=== PATIENT | female | born 1975 | race Caucasian/White ===

== ENCOUNTER → 2020-10-10 | Outpatient (CLI) | payer OTHER ==
[~2020-10-10] MED LIST: APIDRA SOL100 UNIT/1 SQ; BUSPAR 10MG10 MG PO; CARAFATE1 GM PO; CARDIZEM CD120 MG PO; CYMBALTA60 MG PO; ELIQUIS5 MG PO; GLUCOPHAGE1000 MG PO; LANTUS100 UNIT/1 SQ; LASIX20 MG PO; LIPITOR TAB 2020 MG PO; OMEPRAZOLE40 MG PO; PAMELOR25 MG PO; PRINIVIL20 MG PO; PROVENTIL HFA6.7 GM INH; REQUIP2 MG PO; SYMBICORT 160-1 INHA INH; SYNTHROID175 MCG PO
== END ==
LOC: KOH-I 08:00
DX: M50.10 Cervical disc disorder with radiculopathy, unspecified cervical region (principal); Z53.9 Procedure and treatment not carried out, unspecified reason

== ENCOUNTER 2021-10-19 15:03 | Inpatient (IN) | payer OTHER ==
[~2021-10-19] VITALS: Ht 175.3 cm; Wt 108.9 kg
[~2021-10-19 15:03] MED LIST changes: -GLUCOPHAGE1000 MG PO; -LANTUS100 UNIT/1 SQ; -LIPITOR TAB 2020 MG PO; -PRINIVIL20 MG PO
[2021-10-19] MEDS ORDERED: LISINOPRIL20 MG PO (15:33)
[2021-10-19] MEDS ORDERED: GLUCOPHAGE 500500 MG PO (15:36)
[2021-10-19] MEDS ORDERED: LIPITOR TAB 2020 MG PO (15:38)
[2021-10-19 15:47] LABS: HEMOGLOBIN 11.6 gm/dl (12.3-15.3); RED BLOOD COUNT 4.03 M/UL (4.00-5.10); WHITE BLOOD COUNT 6.8 K/UL (4.5-11.0)
[2021-10-19] MEDS ORDERED: LANTUS100 UNIT/1 SQ (16:04)
[2021-10-19 16:08] LABS: BUN/CREATININE RATIO 15 (0-10)
[2021-10-19] MEDS ORDERED: LEVOTHYROXINE200 MC1 PO (19:18)
[2021-10-19] MEDS ORDERED: TRAZODONE HCL50 MG PO (19:20)
[2021-10-19] MEDS ORDERED: GABAPENTIN400 MG PO (19:21)
[2021-10-19] MEDS ORDERED: POTASSIUM CHLO20 ME1 PO (19:21)
[2021-10-19] MEDS ORDERED: PRADAXA 150 MG150 MG PO (19:21)
[2021-10-19] MEDS ORDERED: RYBELSUS3 MG PO (19:22)
[2021-10-19] MEDS ORDERED: NURTEC ODT75 MG PO (19:22)
[2021-10-19] MEDS ORDERED: TOPIRAMATE50 MG PO (19:23)
[2021-10-19] MEDS ORDERED: LEXAPRO10 MG PO (19:23)
[2021-10-19] MEDS ORDERED: METOPROLOL SUCC50 MG PO (19:23)
[2021-10-19] MEDS ORDERED: PREMARIN VAG CR30 GM VG (19:26)
[2021-10-19] MEDS ORDERED: HUMALOG100 UNIT/3 INJ (19:27)
[2021-10-20 06:46] LABS: HEMOGLOBIN 10.8 gm/dl (12.3-15.3); RED BLOOD COUNT 3.76 M/UL (4.00-5.10); WHITE BLOOD COUNT 6.4 K/UL (4.5-11.0)
[2021-10-20 07:18] LABS: BUN/CREATININE RATIO 13 (0-10)
[2021-10-21 05:41] LABS: HEMOGLOBIN 11.2 gm/dl (12.3-15.3); RED BLOOD COUNT 3.94 M/UL (4.00-5.10); WHITE BLOOD COUNT 5.9 K/UL (4.5-11.0)
[2021-10-21 06:02] LABS: BUN/CREATININE RATIO 14 (0-10)
--- NOTE | 2021-10-21 17:27 | NUR ---
1620 PATIENT C/O CHEST PAIN. C/O STABBING PAIN THAT INTENSIFIES WITH BREATHING. NOTIFIED. ORDER RECEIVED FOR DILAUDID 0.5MG IVP NOW AND NS @75CC/HR. DILAUDID ADMINISTERED. IV FLUIDS STARTED. AT 1715 TELE NOTIFIED NURSE THAT PATIENT HAD 3 BEATS OF NSVT. PATIENT C/O HEART FLUTTERS. NOTIFIED. ORDER RECEIVED FOR METOPROLOL 12.5MG PO NOW.
[2021-10-22 06:56] LABS: HEMOGLOBIN 10.9 gm/dl (12.3-15.3); RED BLOOD COUNT 3.83 M/UL (4.00-5.10); WHITE BLOOD COUNT 5.7 K/UL (4.5-11.0)
[2021-10-22 07:29] LABS: BUN/CREATININE RATIO 11 (0-10)
[2021-10-22] MEDS ORDERED: LISINOPRIL10 MG PO (13:30)
[2021-10-22] MEDS ORDERED: RANEXA500 MG PO (13:30)
--- NOTE | 2021-10-22 14:59 | NUR ---
1330 PATIENT RETURNED TO THE FLOOR FROM [employer] [employer]. LHC PERFORMED TO RIGHT GROIN. MYNX DRESSING CLEAN, DRY AND INTACT. PATIENT LYING WITH HEAD ELEVATED AT 30 DEGREES. NO C/O NOTED. VS 106/63, 92, 12, 97.6, 98%. NO DISTRESS NOTED. PATIENT ADVISED TO REMAIN AT 30 DEGREE ANGLE WITHOUT MOVING RLE X3 HOURS. PATIENT VERBALIZED UNDERSTANDING.
== END 2021-10-22 17:07 | disposition home or self-care (01) | DRG 287 ==
LOC: ER1 15:03 → M/S 18:30 → CDU 18:30 → M/S 10-20 02:54
PROVIDERS: Physician Assistant; ADMIT Internal Medicine
PROC: B2111ZZ Fluoroscopy of Multiple Coronary Arteries using Low Osmolar Contrast (ICD-10-PCS; 2021-10-20)
PROC: B24BZZZ Ultrasonography of Heart with Aorta (ICD-10-PCS; principal; 2021-10-22)
PROC: 4A023N7 Measurement of Cardiac Sampling and Pressure, Left Heart, Percutaneous Approach (ICD-10-PCS; 2021-10-22)
DX: I20.9 Angina pectoris, unspecified (principal); I99.9 Unspecified disorder of circulatory system; E83.42 Hypomagnesemia; E11.9 Type 2 diabetes mellitus without complications; I48.0 Paroxysmal atrial fibrillation; I10 Essential (primary) hypertension; M79.7 Fibromyalgia; E66.01 Morbid (severe) obesity due to excess calories; Z20.822 Contact with and (suspected) exposure to COVID-19; F41.9 Anxiety disorder, unspecified; F32.A Depression, unspecified; K21.9 Gastro-esophageal reflux disease without esophagitis; E03.9 Hypothyroidism, unspecified; G43.909 Migraine, unspecified, not intractable, without status migrainosus; Z86.010 Personal history of colon polyps; Z90.710 Acquired absence of both cervix and uterus; Z98.890 Other specified postprocedural states; Z80.0 Family history of malignant neoplasm of digestive organs; Z80.1 Family history of malignant neoplasm of trachea, bronchus and lung; Z82.49 Family history of ischemic heart disease and other diseases of the circulatory system; Z83.3 Family history of diabetes mellitus; Z83.438 Family history of other disorder of lipoprotein metabolism and other lipidemia; Z87.891 Personal history of nicotine dependence; Z79.4 Long term (current) use of insulin; Z79.84 Long term (current) use of oral hypoglycemic drugs; Z79.899 Other long term (current) drug therapy; Z88.6 Allergy status to analgesic agent
CPT/HCPCS: ECHO; 36415; 71045; 71250; 78452; 80053; 81001; 82550; 82553; 82962; 83036; 83690; 83735; 83874; 84439; 84443; 84484; 85025; 85379; 93005; 93017; 93306; 96374; 96375; 96376; 99152; 99285; A9502; C1769; G0378; J1170; J1644; J1650; J1885; J2250; J2270; J2405; J2785; J3010; J3475; J7030; J7040; Q9967; U0002

== ENCOUNTER 2021-11-05 13:17 | Emergency (ER) | payer OTHER ==
[~2021-11-05 13:17] MED LIST changes: +GABAPENTIN400 MG PO; +GLUCOPHAGE 500500 MG PO; +HUMALOG100 UNIT/3 INJ; +LANTUS100 UNIT/1 SQ; +LEVOTHYROXINE200 MC1 PO; +LEXAPRO10 MG PO; +LIPITOR TAB 2020 MG PO; +LISINOPRIL10 MG PO; +LISINOPRIL20 MG PO; +METOPROLOL SUCC50 MG PO; +NURTEC ODT75 MG PO; +POTASSIUM CHLO20 ME1 PO; +PRADAXA 150 MG150 MG PO; +PREMARIN VAG CR30 GM VG; +RANEXA500 MG PO; +RYBELSUS3 MG PO; +TOPIRAMATE50 MG PO; +TRAZODONE HCL50 MG PO
[2021-11-05 14:26] LABS: HEMOGLOBIN 11.5 gm/dl (12.3-15.3); RED BLOOD COUNT 4.07 M/UL (4.00-5.10); WHITE BLOOD COUNT 7.4 K/UL (4.5-11.0)
[2021-11-05 14:50] LABS: BUN/CREATININE RATIO 18 (0-10)
== END 2021-11-05 15:49 | disposition home or self-care (01) ==
LOC: ER1 13:17
PROVIDERS: Physician Assistant
DX: U07.1 COVID-19 (principal); Z90.710 Acquired absence of both cervix and uterus; I10 Essential (primary) hypertension; I48.91 Unspecified atrial fibrillation; E11.65 Type 2 diabetes mellitus with hyperglycemia
CPT/HCPCS: 71045; 80053; 82550; 82553; 83874; 84439; 84443; 84484; 85025; 85379; 93005; 99284